=== PATIENT | female | born 2000 | race American Indian/Alaskan Native ===

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

== ENCOUNTER 2020-06-20 17:08 | Emergency (ER) | payer SELFPAY ==
[2020-06-20 17:14] VITALS: BP 123/63
[2020-06-20] MEDS ORDERED: IBUPROFEN 600 MG TAB PO ONE ×2 (17:48→17:50)
== END 2020-06-20 19:00 | disposition left against medical advice (07) ==
LOC: ED 17:08
DX: Z04.1 Encounter for examination and observation following transport accident (principal); Z53.21 Procedure and treatment not carried out due to patient leaving prior to being seen by health care provider